=== PATIENT | female | born 1980 | race Caucasian/White ===

== ENCOUNTER → 2016-09-17 | Outpatient (CLI) | payer OTHER | LOC: FIMAGING 13:42 | PROVIDERS: ATTEND Obstetrics & Gynecology | DX: O09.512 Supervision of elderly primigravida, second trimester (principal); Z3A.19 19 weeks gestation of pregnancy ==

== ENCOUNTER 2017-02-12 13:20 | Inpatient (IN) | payer OTHER ==
--- NOTE | 2017-02-12 13:51 | GHP ---
[f rep st] PREOP HISTORY AND PHYSICAL DATE OF ADMISSION: 02/12/2017 CHIEF COMPLAINT: Labor. HISTORY OF PRESENT ILLNESS: The patient is a 36-year-old G1, P0 female who is at 40 and 5/7 weeks gestation dated by LMP and 7-week ultrasound who presents with complaints of painful contractions every 5 minutes. She has also lost her mucus plug and has had bloody show. She denies any loss of fluid. Her contractions have been occurring since 1 a.m. PAST MEDICAL HISTORY: Negative. PAST SURGICAL HISTORY: Negative. 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 This is her first . REVIEW OF SYSTEMS: Positive for painful contractions. EXAM: VITAL SIGNS: Her blood pressure is 130/86. GENERAL: She is uncomfortable with contractions. ABDOMEN: Gravid, nontender. She is floresita every 2-3 minutes. heart tones are in the 130s with moderate variability and positive accels. Her cervix is 4 cm dilated, completely effaced , and -1 station. LABS: Significant for blood type of O positive, antibody screen negative. Rubella immune. RPR nonreactive. Hepatitis B surface antigen negative. HIV negative. Gonorrhea and chlamydia negative. 1-hour Glucola 155. Her 3-hour was 72, 140, 152 and 87. She is GBS negative. ASSESSMENT AND PLAN: This is a 36-year-old G1, P0 female who is at 40 and 5/7 weeks gestation in active labor. well-being is reassuring. GBS is negative. Expect normal spontaneous vaginal delivery. /[id number]/MODL MTDD
[2017-02-12] MEDS ORDERED: OLIVE OIL 118 ML BTL ONE (14:44)
[2017-02-12] MEDS ORDERED: LIDOCAINE 1% 300 MG/30 ML SDV ONE (14:44)
[2017-02-12] MEDS ORDERED: TERBUTALINE SULFATE 1 MG/ML VIAL ONE (14:45)
[2017-02-12] MEDS ORDERED: AMMONIA AROMATIC 1 EACH AMP IH ONE (14:45)
[2017-02-12] MEDS ORDERED: MISOPROSTOL 200 MCG TAB ONE (14:45)
[2017-02-12] MEDS ORDERED: OXYTOCIN 10 UNIT/ML VIAL ONE (14:45)
[2017-02-12] MEDS ORDERED: LIDOCAINE 1% 300 MG/30 ML SDV SC PRN (14:47)
[2017-02-12] MEDS ORDERED: OLIVE OIL 118 ML BTL MISC PRN (14:47)
[2017-02-12] MEDS ORDERED: TERBUTALINE SULFATE 1 MG/ML VIAL IV PRN (14:47)
[2017-02-12] MEDS ORDERED: OXYTOCIN/RINGERS LACTATE 1,000 ML IV PRN (14:47)
[2017-02-12] MEDS ORDERED: EPSOM SALT 454 GM TP PRN (14:47)
[2017-02-12] MEDS ORDERED: LR 1,000 ML IV PRN (14:47)
[2017-02-12 16:48] LABS: % IMMATURE GRANULYOCYTES 1.2 % (0.0-1.1); ABSOLUTE IMMATURE GRANULOCYTES 0.16 10^3/uL (0.00-0.10); ADD DIFF? NO; ADD MORPH? NO; ADD SCAN? NO; ATYPICAL LYMPHOCYTE FLAG 0 (0-99); FRAGMENT RBC FLAG 0 (0-99); HEMOGLOBIN 12.1 g/dL (12.6-16.3); LEFT SHIFT FLG 10 (0-99); LIPEMIA HEMOLYSIS FLAG 80 (0-99); MEAN CELL HEMOGLOBIN 28.5 pg (27.9-34.1); MEAN CELL HEMOGLOBIN CONCENTR. 33.6 g/dL (32.4-36.7); MEAN CELL VOLUME 84.7 fL (81.5-99.8); MEAN PLATELET VOLUME 10.1 fL (8.7-11.7); PLATELET CLUMPS FLAG 10 (0-99); PLATELET COUNT 209 10^3/uL (150-400); RED BLOOD CELL COUNT 4.25 10^6/uL (4.18-5.33); RED CELL DISTRIBUTION WIDTH 14.7 % (11.5-15.2)
--- NOTE | 2017-02-12 17:36 | OBPROG ---
OBG Labor Progress Note Assessment/Plan: Assessment: 36 yo @ 40 5/7, labor Plan: 02/12/17 17:35 FWB reassuring. GBS neg. Arom at next check. Epidural as desired. Subjective: 36 yo @ 40 5/7, labor Objective: 02/12/17 16:32 Patient ABO/Rh O POSITIVE 02/12/17 16:32 VSS - SVE Dilation (cm): 5 Effacement (%): 100 Station: -1 [place] Current Contraction Pattern: Regular FHR (bpm): 130 FHR Pattern Variability: Moderate FHR Category: 2 Oxytocin Orders Assessment - Pre-Induction/Augmentation Assessment Gestational Age: 40 week(s) and 5 day(s) ICD10 Worksheet Patient Problems: Problems Problem Status Onset Labor established Acute
[2017-02-12] MEDS ORDERED: LR 500 ML IV PRN (21:15)
--- NOTE | 2017-02-12 21:15 | OBPROG ---
OBG Labor Progress Note Assessment/Plan: Assessment: 36 yo @ 40 5/7, labor Plan: FWB reassuring. GBS neg. Arom is clear. Epidural as desired. 02/12/17 21:13 Subjective: 36 yo @ 40 5/7, labor-contractions are getting stronger. Objective: 02/12/17 16:32 Patient ABO/Rh O POSITIVE 02/12/17 16:32 VSS - SVE Dilation (cm): 6 Effacement (%): 100 Station: -1 [place] Current Contraction Pattern: Regular FHR (bpm): 150 FHR Pattern Variability: Moderate FHR Category: 2 Membranes: AROM Amniotic Fluid Color: Clear - Procedures Non-surgical Procedures: Amniotomy Oxytocin Orders Assessment - Pre-Induction/Augmentation Assessment Presentation: Vertex Gestational Age: 40 week(s) and 5 day(s) Gestational Age Determined By: Last Menstral Period Estimated Weight: 4310-4106 Membrane Status: Ruptured Current Contraction Pattern: Regular - Heart Rate Pattern Ybarra FHR Baseline (bpm): 140 FHR Category: 2 FHR Pattern Variability: Moderate FHR Accelerations: Present - Breen's Score Dilation: 5-6cm Effacement: 80+ Station: -1,0 Cervix: Soft Cervix Position: Anterior Breen Score Total: 12 - Induction/Augmentation Consent Risks/Benefits of Procedure Reviewed/Pt Agrees to Proceed: Yes ICD10 Worksheet Patient Problems: Problems Problem Status Onset Labor established Acute
[2017-02-12] MEDS ORDERED: OXYTOCIN/RINGERS LACTATE 500 ML IV SCH (21:30)
[2017-02-12] MEDS ORDERED: PHENYLEPHRINE HCL 100 MCG/ML SYR ONE (21:56)
[2017-02-12] MEDS ORDERED: BUPIVACAINE 0.25% 30 ML SDV ONE (21:56)
[2017-02-12] MEDS ORDERED: fentaNYL 2MCG/ML/BUP 0.1% RTU 100 ML BAG EP ONE (21:56)
[2017-02-12] MEDS ORDERED: fentaNYL 100 MCG/2 ML INJ ONE (21:57)
[2017-02-12] MEDS ORDERED: ONDANSETRON 4 MG/2 ML VIAL IVP PRN (22:54)
[2017-02-12] MEDS ORDERED: NALOXONE HCL 0.4 MG/ML INJ IVP PRN (22:54)
[2017-02-12] MEDS ORDERED: PHENYLEPHRINE HCL 100 MCG/ML SYR IVP PRN (22:54)
[2017-02-12] MEDS ORDERED: fentaNYL 2MCG/ML/BUP 0.1% RTU 100 ML EP SCH (23:00)
[2017-02-12] MEDS ORDERED: LR 500 ML IV SCH (23:00)
--- NOTE | 2017-02-13 06:51 | OBPROG ---
OBG Labor Progress Note Assessment/Plan: Assessment: 36 yo @ 40 5/7, labor-doing well Plan: FWB reassuring. GBS neg. Arom is clear. Epidural in place. Making progress with pushing, expect . 02/13/17 06:50 Subjective: 36 yo @ 40 5/7, labor-doing well Objective: 02/12/17 16:32 Patient ABO/Rh O POSITIVE 02/12/17 16:32 vss - SVE Dilation (cm): 10 Effacement (%): 100 Station: +3 Dilation Complete Date: 02/13/17 Dilation Complete Time: 03:00 Ybar[place] Current Contraction Pattern: Regular FHR (bpm): 130 FHR Pattern Variability: Moderate FHR Category: 2 Membranes: AROM Amniotic Fluid Color: Clear - Procedures Non-surgical Procedures: Amniotomy - Physical Exam Estimated Weight: 9434-2648 Oxytocin Orders Assessment - Pre-Induction/Augmentation Assessment Presentation: Vertex Gestational Age: 40 week(s) and 5 day(s) Estimated Weight: 8733-1779 ICD10 Worksheet Patient Problems: Problems Problem Status Onset Labor established Acute
[2017-02-13] MEDS ORDERED: SIMETHICONE 80 MG TAB CHEW PO PRN (09:00)
[2017-02-13] MEDS ORDERED: ACETAMINOPHEN 325 MG TAB PO PRN (09:00)
[2017-02-13] MEDS ORDERED: HYDROCORTISONE 0.5% CREAM TP PRN (09:00)
--- NOTE | 2017-02-13 09:03 | OBDEL ---
Info Type: Vaginal GBS+: No Indications for Delivery: Spontaneous Labor Vaginal Delivery - Labor and Delivery Onset of Contractions Date: 02/12/17 Onset of Contractions Time: 01:00 Onset of Contractions Type: Augmented Rupture of Membranes Date: 02/12/17 Rupture of Membranes Time: 23:00 Rupture of Membranes Type: Artificial Amniotic Fluid Color: Clear Dilation Complete Date: 02/13/17 Dilation Complete Time: 03:00 Placenta Delivery Date: 02/13/17 Non-surgical Procedures: Amniotomy Laceration: 1st Degree Repair: 2-0, Vicryl Vaginal Sponge Count Correct: Yes Vaginal Needle Count Correct: Yes Vaginal Sweep Performed: No EBL: 300 ml Delivery Events: None - Medications Labor Augmentation/Induction Methods Used: Pitocin Labor Augmentation/Induction Indication: Other (Specify) (protraction of labor) Data [place] Delivery Date: 02/13/17 Delivery Time: 08:58 RADHA: 02/07/17 Gestational Age: 40 week(s) and 6 day(s) Sex of : Female Score (1 Min): 8 Score (5 Min): 9 ICD10 Worksheet Patient Problems: Problems Problem Status Onset Labor established Acute
--- NOTE | 2017-02-13 09:04 | OBGCSDC ---
General Delivery Information - General Info : 1 Para: 0 Abortions: 0 Delivery Physician/CNM: Pam Pina Admission Date: 02/12/17 Labs: Patient ABO/Rh O POSITIVE 02/12/17 16:32 Hct 36.0 % (38.0-47.0) L 02/12/17 16:32 Vaginal - Diagnosis Labor: Augmented Rupture of Membranes Type: Artificial Amniotic Fluid Color: Clear Laceration: 1st Degree Repair: 2-0, Vicryl Delivery Events: None - Operations/Procedures Non-surgical Procedures: Amniotomy - Hospital Course Antepartum: AMA Intrapartum: None - Delivery Type: Vaginal Non-surgical Procedures: Amniotomy EBL: 300 ml [place] Data Ybarra Delivery Date: 02/13/17 Delivery Time: 08:58 RADHA: 02/07/17 Gestational Age: 40 week(s) and 6 day(s) Sex of : Female Score (1 Min): 8 Score (5 Min): 9
[2017-02-13] MEDS: IBUPROFEN 600 MG TAB PO PRN ×3 (09:22→21:39)
[2017-02-13] MEDS: DOCUSATE SODIUM 100 MG CAP PO PRN (21:39)
[2017-02-14] MEDS: IBUPROFEN 600 MG TAB PO PRN ×4 (03:43→22:43)
[2017-02-14] MEDS: DOCUSATE SODIUM 100 MG CAP PO PRN ×2 (09:44→22:43)
--- NOTE | 2017-02-14 13:23 | OBPP ---
Progress Note Assessment/Plan: Assessment: PPD#1 s/p at term Rh pos/Rub imm Plan: Routine pp care Anticipate home tomorrow 02/14/17 13:22 Subjective: feeling well. Tired and sore, ibuprofen is helping. Lochia lessening. Urinating normally. Regular diet. Baby is latching, has a small amount of colostrum. Objective: 02/12/17 16:32 Patient ABO/Rh O POSITIVE 02/12/17 16:32 Temp Pulse Resp BP Pulse Ox 36.6 C 74 18 106/68 95 02/14/17 08:52 02/14/17 08:52 02/14/17 08:52 02/14/17 08:52 02/14/17 08:52 Gen: NAD Resp: unlabored CV: RRR Abd: soft, nontender, uterus firm below U Ext: warm/dry
[2017-02-15] MEDS: IBUPROFEN 600 MG TAB PO PRN ×2 (04:25→10:36)
--- NOTE | 2017-02-15 08:38 | OBGCSDC ---
General Delivery Information - General Info : 1 Para: 1 Delivery Physician/CNM: Pam Pina Labs: Patient ABO/Rh O POSITIVE 02/12/17 16:32 Hct 36.0 % (38.0-47.0) L 02/12/17 16:32 Vaginal - Diagnosis Labor: Augmented Rupture of Membranes Type: Artificial Amniotic Fluid Color: Clear Laceration: 1st Degree Repair: 2-0, Vicryl Delivery Events: None - Operations/Procedures Non-surgical Procedures: Amniotomy L&D Analgesia/Anesthesia Type: Epidural, Local - Hospital Course Antepartum: labor at 40w5d Intrapartum: Uncomplicated : Routine pp care. Rh pos, Rub imm - Delivery Non-surgical Procedures: Amniotomy L&D Analgesia/Anesthesia Type: Epidural, Local [place] Data Ybarra Delivery Date: 02/13/17 Delivery Time: 08:48 RADHA: 02/07/17 Gestational Age: 41 week(s) and 1 day(s) Sex of Infant: Female [place] Weight (gm): 3790 kg Score (1 Min): 8 Score (5 Min): 9 Discharge Information - Discharge Information Discharge Medications: Ibuprofen Condition: Good Instruction/Follow Up: Six Weeks Discharge Physician/CNM: Susy Lucas
[2017-02-15 08:55] VITALS: BP 129/83; PULSE 95; RESP 17; TEMP 98; O2SAT 95
[2017-02-15] MEDS: DOCUSATE SODIUM 100 MG CAP PO PRN (08:56)
== END 2017-02-15 13:00 | disposition home or self-care (01) | DRG 775 ==
LOC: FLD 13:20 → FOB 02-13 12:09
PROVIDERS: ADMIT Obstetrics & Gynecology; ATTEND Obstetrics & Gynecology
PROC: 10907ZC Drainage of Amniotic Fluid, Therapeutic from Products of Conception, Via Natural or Artificial Opening (ICD-10-PCS; 2017-02-12)
PROC: 0HQ9XZZ Repair Perineum Skin, External Approach (ICD-10-PCS; principal; 2017-02-13)
PROC: 10E0XZZ Delivery of Products of Conception, External Approach (ICD-10-PCS; principal; 2017-02-13)
DX: O70.0 First degree perineal laceration during delivery (principal); Z3A.40 40 weeks gestation of pregnancy; Z37.0 Single live birth
CPT/HCPCS: G0463; J2370; J2590; J3010; J3105

== ENCOUNTER → 2018-08-25 | Outpatient (CLI) | payer OTHER | LOC: FIMAGING 14:57 | PROVIDERS: ATTEND Midwife | DX: N64.4 Mastodynia (principal) ==